=== PATIENT | male | born 1960 | race Caucasian/White ===

== ENCOUNTER → 2019-11-06 14:27 | Outpatient (CLI) | payer BC, SELFPAY ==
--- NOTE | 2019-11-06 14:31 | XR_ITS ---
PROCEDURE: XR SHOULDER LT MIN 2V CLINICAL INDICATION: ACUTE LT SHOULDER PAIN, INJURY COMPARISON: CXR CHEST(2 VIEWS-NOT PORTABLE) from 02/16/2017 FINDINGS: No fracture, dislocation, lytic change, or blastic change evident. No significant degenerative change IMPRESSION: No acute findings. Dictated by: Lokesh Christianson MD 11/06/2019 15:04 Electronically signed by Lokesh Christianson MD in [place] 11/06/2019 15:04
== END ==
PROVIDERS: PCP Family Medicine; Visit Provider Family Medicine
DX: M25.512 Pain in left shoulder (principal); S49.92XA Unspecified injury of left shoulder and upper arm, initial encounter
CPT/HCPCS: 73030

== ENCOUNTER → 2019-11-09 13:39 | Outpatient (CLI) | payer BC, SELFPAY ==
--- NOTE | 2019-11-09 13:45 | MR_ITS ---
PROCEDURE: MR SHOULDER LT WO CON CLINICAL INDICATION: ACUTE PAIN OF LEFT SHOULDER Fall with injury and pain, persistent pain COMPARISON: XR SHOULDER LT MIN 2V from 11/06/2019 TECHNIQUE: Routine multiplanar multi echo sequences are performed without gadolinium enhancement. FINDINGS: There is a nondisplaced fracture involving the greater tuberosity the humerus with prominent bone bruise of the greater tuberosity, the humeral neck, and the lateral aspect of the humeral head anteriorly. There is thickening of the supraspinatus tendon with increased T2 signal consistent with tendinopathy/tendinosis. There are mild hypertrophic changes of the acromioclavicular joint with some impingement upon the musculotendinous junction of the supraspinatus. There is narrowing of the subacromial space. No evidence of tear of the supraspinatus tendon. There is a small focal area of increased T2 signal involving the undersurface of the infraspinatus tendon distally and posteriorly suggesting a partial tear. There is some bone marrow edema just deep to this region. There is mild thickening of the subscapularis tendon suggesting tendinopathy/tendinosis. The teres minor tendon has an unremarkable appearance. No obvious glenoid tear. There is a small shoulder joint effusion and there is some fluid also in the sub coracoid region. There is some fluid also in the subdeltoid region.. The bicipital tendon is in place with a small amount fluid around the bicipital tendon. IMPRESSION: 1. Tendinopathy/tendinosis of the supraspinatus tendon and subscapularis tendon. 2. Suspect a small incomplete partial tear of the infraspinatus tendon. 3. Nondisplaced fracture of the greater tuberosity of the humerus with bone bruise of the humerus and small shoulder joint effusion Dictated by: Lokesh Christianson MD 11/10/2019 18:09 Electronically signed by Lokesh Christianson MD in [place] 11/10/2019 18:09
== END ==
PROVIDERS: PCP Family Medicine; Visit Provider Family Medicine
DX: M25.512 Pain in left shoulder (principal)
CPT/HCPCS: 73221

== ENCOUNTER → 2019-12-19 09:04 | Outpatient (CLI) | payer BC, SELFPAY ==
--- NOTE | 2019-12-19 09:08 | XR_ITS ---
PROCEDURE: XR SHOULDER LT MIN 2V CLINICAL INDICATION: left proximal humerus fracture fu COMPARISON: XR SHOULDER LT MIN 2V from 11/06/2019 and MRI scan left shoulder 11/09/2019 FINDINGS: There is a subtle radiolucency of the humeral head near the greater tuberosity which may represent the nondisplaced fracture line identified on the MRI exam. The clavicle is intact, there is moderate spurring of the AC joint inferiorly. There are no soft tissue calcifications. IMPRESSION: Subtle radiolucency likely representing the fracture line which apparently was be low resolution on the original plain films of the left shoulder 11/06/2019 Dictated by: Dr. Mata Casanova MD 12/19/2019 09:[address] Mata Casanova MD in [place] 12/19/2019 09:45
== END ==
PROVIDERS: PCP Family Medicine; Visit Provider Orthopaedic Surgery
DX: S42.202A Unspecified fracture of upper end of left humerus, initial encounter for closed fracture (principal)
CPT/HCPCS: 73030

== ENCOUNTER → 2020-01-23 10:25 | Outpatient (CLI) | payer BC, SELFPAY ==
--- NOTE | 2020-01-23 10:26 | XR_ITS ---
PROCEDURE: XR SHOULDER LT MIN 2V CLINICAL INDICATION: left proximal humerus fracture Follow-up fracture, pain COMPARISON: XR SHOULDER LT MIN 2V from 11/06/2019 MR SHOULDER LT WO CON from 11/09/2019 XR SHOULDER LT MIN 2V from 12/19/2019 FINDINGS: There is a faint oblique lucency at the base of the greater tubercle of the humerus consistent with nondisplaced fracture. Fracture line is barely visible. There is some minimal cortical regularity at the superior aspect of the greater tubercle nonspecific. Glenohumeral joint has an unremarkable appearance. IMPRESSION: Nondisplaced fracture greater tuberosity with minimal cortical regularity of the junction of the humeral head with the greater tuberosity Dictated by: Lokesh Christianson MD 01/23/2020 14:10 Electronically signed by Lokesh Christianson MD in [place] 01/23/2020 14:10
== END ==
PROVIDERS: PCP Family Medicine; Visit Provider Orthopaedic Surgery
DX: S42.202D Unspecified fracture of upper end of left humerus, subsequent encounter for fracture with routine healing (principal)
CPT/HCPCS: 73030

== ENCOUNTER 2020-01-25 13:30 | Outpatient (RCR) | payer BC, SELFPAY | END 2020-01-25 13:35 | disposition home or self-care (01) | LOC: PT 13:30 | PROVIDERS: PCP Family Medicine; Visit Provider Orthopaedic Surgery | DX: S42.202A Unspecified fracture of upper end of left humerus, initial encounter for closed fracture (principal) | CPT/HCPCS: 97010; 97014; 97110; 97163; G0283 ==